=== PATIENT | male | born 1965 | race Caucasian/White ===

== ENCOUNTER 2017-07-22 16:55 | Inpatient (IN) | payer OTHER ==
[2017-07-22 17:22] VITALS: BMI 31.8
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
[2017-07-22] MEDS ORDERED: LOPERAMIDE HCL 2 MG CAPSULE PO PRN (17:45)
[2017-07-22] MEDS ORDERED: hydrOXYzine PAMOATE 50 MG CAPSULE (FP) PO PRN (17:45)
[2017-07-22] MEDS ORDERED: MAGNESIUM CITRATE 300 ML BOTTLE PO PRN (17:45)
[2017-07-22] MEDS ORDERED: chlordiazePOXIDE HCL 25 MG CAPSULE PO PRN (17:45)
[2017-07-22] MEDS ORDERED: MAG HYDROX/AL HYDROX/SIMETH 30 ML UNIT-DOSE CUP PO PRN (17:45)
[2017-07-22] MEDS ORDERED: IBUPROFEN 400 MG TABLET (FP) PO PRN (17:45)
[2017-07-22] MEDS ORDERED: ACETAMINOPHEN 325 MG TABLET (FP) PO PRN (17:45)
[2017-07-22] MEDS ORDERED: P-EPHED 60MG/TRIPROLIDI 2.5MG TABLET PO PRN (17:45)
[2017-07-22] MEDS ORDERED: NICOTINE POLACRILEX 4 MG GUM BC PRN (17:45)
[2017-07-22] MEDS ORDERED: MENTHOL/PHENOL 1 EACH UD MM PRN (17:45)
[2017-07-22] MEDS ORDERED: guaiFENesin/D-METHORPHAN HB 10 ML UNIT-DOSE CUPS PO PRN (17:45)
[2017-07-22] MEDS ORDERED: MAGNESIUM HYDROX 2400MG/30ML ORAL SUSPENSION 30 ML CUP PO PRN (17:45)
[2017-07-22] MEDS ORDERED: ALBUTEROL SO4 18 GM HFA INHALER IH PRN (17:54)
[2017-07-22] MEDS ORDERED: ALBUTEROL SO4 2.5/IPRATROPIUM 0.5 INH SOL 3 ML VIAL.NEB. NEB PRN (17:54)
[2017-07-22] MEDS ORDERED: BACLOFEN 10 MG TABLET (FP) PO SCH (18:00)
[2017-07-22] MEDS ORDERED: chlordiazePOXIDE HCL 25 MG CAPSULE PO ONE (18:30)
[2017-07-22] MEDS ORDERED: ALBUTEROL SO4 2.5/IPRATROPIUM 0.5 INH SOL 3 ML VIAL.NEB. NEB ONE (18:30)
[2017-07-22] MEDS: GABAPENTIN 400 MG CAPSULE (FP) PO SCH ×2 (18:52→22:08)
[2017-07-22] MEDS: IBUPROFEN 400 MG TABLET (FP) PO SCH (18:53)
[2017-07-22] MEDS: PANTOPRAZOLE 40 MG TABLET (FP) PO SCH (18:54)
[2017-07-22] MEDS: THIAMINE HCL 100 MG TABLET (FP) PO SCH (22:08)
[2017-07-22] MEDS: chlordiazePOXIDE HCL 25 MG CAPSULE PO SCH (22:09)
[2017-07-22 22:47] LABS: URINE APPEARANCE CLEAR; URINE BILIRUBIN NEGATIVE (NEGATIVE); URINE BLOOD 1+ (NEGATIVE); URINE COLOR YELLOW; URINE GLUCOSE (UA) NEGATIVE (NEGATIVE); URINE KETONE NEGATIVE (NEGATIVE); URINE NITRITE NEGATIVE (NEGATIVE); URINE PROTEIN NEGATIVE (NEGATIVE); URINE UROBILINOGEN NEGATIVE mg/dL (0.2-1.0)
[2017-07-22 22:58] LABS: URINE BACTERIA MANY /hpf (NONE SEEN); URINE RBC 3 /hpf (0-3); URINE WBC <1 /hpf (3-5)
[2017-07-23] MEDS: IBUPROFEN 400 MG TABLET (FP) PO SCH ×3 (03:30→17:55)
[2017-07-23] MEDS: chlordiazePOXIDE HCL 25 MG CAPSULE PO SCH ×4 (05:33→22:44)
[2017-07-23] MEDS: GABAPENTIN 400 MG CAPSULE (FP) PO SCH ×3 (05:33→22:43)
--- NOTE | 2017-07-23 07:32 | CONSULT ---
[facility] Psychiatric Consult - Data Date of interview: 07/23/17 Admission source: [facility] Identifying data: This is 51 years old spanisg speaking male with unclear past psychiatric history, with psychiatric hospitalization history, intoxicated with : Alocohol, Methadone, Cocaine and Nicotine. Reports MMTP 100MG POQD Substance Abuse History: - Smoking Cessation. Smoking history: Current every day smoker. Have you smoked in the past 12 months: Yes. Aproximately how many cigarettes per day: 20. Hx Chewing Tobacco Use: No. Initiated information on smoking cessation: Yes. 'Breaking Loose' booklet given: 07/22/17. - Substance & Tx. History. Hx Alcohol Use: Yes. Hx Substance Use: Yes. Substance Use Type : Alcohol, Cocaine. Hx Substance Use Treatment: Yes (last detox a year ago). - Substances Abused. Alcohol. Route: Oral. Frequency: Daily. Amount used : 1-2 pints whiskey. Age of first use: 9. Date of Last Use: 07/22/17. Cocaine. Route: Inhalation. Frequency: Daily. Amount used: $100. Age of first use: 14. Date of Last Use: 07/21/17 Medical History: Asthma, MMTP 100mg poqd Psychiatric History: Patient reports uncleat psychiatric admission on about 10 years ago, reports no suicidal history, reports taking prior to admission: Klonopin and Xanax Physical/Sexual Abuse/Trauma History: Denies Additional Comment: Observation. Detox Unit Care Protocol Mental Status Exam - Mental Status Exam Alert and Oriented to: Person Cognitive Function: Fair Patient Appearance: Unkempt Mood: Anxious Affect: Mood Congruent Patient Behavior: Cooperative Speech Pattern: Appropriate Voice Loudness: Normal Thought Process: Goal Oriented Thought Disorder: Being Controlled Hallucinations: Denies Suicidal Ideation: Denies Homicidal Ideation: Denies Insight/Judgement: Fair Sleep: Difficulty falling asleep Appetite: Weight gain Muscle strength/Tone: Normal Gait/Station: Normal Additional Comments: Observation. Detox Unit Care Protocol Psychiatric Findings - Problem List ([place] 1, 2,3) (1) Cocaine abuse Current Visit: Yes Status: Acute (2) Drug-induced mood disorder Current Visit: Yes Status: Suspected (3) Alcohol dependence with uncomplicated withdrawal Current Visit: Yes Status: Chronic (4) Methadone maintenance therapy patient Current Visit: Yes Status: Chronic (5) Nicotine dependence Current Visit: Yes Status: Chronic Qualifiers: Nicotine product type: cigarettes Substance use status: uncomplicated Qualified Code(s): F17.210 - Nicotine dependence, cigarettes, uncomplicated - Initial Treatment Plan Initial Treatment Plan: Observation. Detox Unit Care Protocol
[2017-07-23] MEDS: metFORMIN HCL 500 MG TABLET (FP) PO SCH (07:41)
[2017-07-23] MEDS ORDERED: METHADONE HCL 10 MG TABLET PO SCH (09:45)
[2017-07-23 10:03] LABS: MCH 30.9 pg (25.7-33.7); MCHC 33.4 g/dl (32.0-35.9); MEAN CELL VOLUME 92.6 fl (80-96); MEAN PLT VOLUME 8.3 fl (7.5-11.1); PLATELET COUNT 210 K/MM3 (134-434); RDW 14.1 % (11.9-15.9); WHITE BLOOD COUNT 4.5 K/mm3 (4.0-10.0)
--- NOTE | 2017-07-23 10:16 | EKG ---
Test Reason : Blood Pressure : / mmHG Vent. Rate : 065 BPM Atrial Rate : 065 BPM P-R Int : 150 ms QRS Dur : 080 ms QT Int : 434 ms P-R-T Axes : 062 060 056 degrees QTc Int : 451 ms NORMAL SINUS RHYTHM WITH SINUS ARRHYTHMIA NORMAL ECG NO PREVIOUS ECGS AVAILABLE Confirmed by PREETHI HENRY MD ([id number]) on 07/23/2017 10:16:23 AM Referred By: Confirmed By:PREETHI HENRY MD
[2017-07-23 10:26] LABS: ALBUMIN 3.4 g/dl (3.4-5.0); ALK PHOS 103 U/L (45-117); ANION GAP 4 (8-16); BILIRUBIN,TOTAL 1.2 mg/dL (0.2-1.0); CALCIUM 8.8 mg/dL (8.5-10.1); CO2 31 mmol/L (21-32); GLUCOSE,RANDOM 134 mg/dL (74-106); SGOT/AST 19 U/L (15-37); SGPT/ALT 20 U/L (12-78); TOT PROT 6.5 g/dl (6.4-8.2)
--- NOTE | 2017-07-23 10:33 | PN ---
S CIWA - CIWA Score Nausea/Vomitin Muscle Tremors: 3 Anxiety: 3 Agitation: 2 Paroxysmal Sweats: 1-Minimal Palms Moist Orientation: 0-Oriented Tacttile Disturbances: 1-Very Mild Itch/Numbness Auditory Disturbances: 1-Very Mild Visual Disturbances: 0-None Headache: 2-Mild CIWA-Ar Total Score: 16 BHS Progress Note (SOAP) Subjective: alert,irritable,anxious,interrupted sleep,tremor,pain in the body Objective: 07/23/17 10:30 Vital Signs Temperature 98.1 F 07/23/17 10:11 Pulse Rate 64 07/23/17 10:11 Respiratory Rate 18 07/23/17 10:11 Blood Pressure 146/89 07/23/17 10:11 O2 Sat by Pulse Oximetry (%) ekg nsr,with sinus arrhythmia nochest pain,no sob,no dizziness Laboratory Last Values WBC 4.5 K/mm3 (4.0-10.0) 07/23/17 07:00 RBC 4.43 M/mm3 (4.00-5.60) 07/23/17 07:00 Hgb 13.7 GM/dL (11.7-16.9) 07/23/17 07:00 Hct 41.0 % (35.4-49) 07/23/17 07:00 MCV 92.6 fl (80-96) 07/23/17 07:00 MCH 30.9 pg (25.7-33.7) 07/23/17 07:00 MCHC 33.4 g/dl (32.0-35.9) 07/23/17 07:00 RDW 14.1 % (11.9-15.9) 07/23/17 07:00 Plt Count 210 K/MM3 (134-434) 07/23/17 07:00 MPV 8.3 fl (7.5-11.1) 07/23/17 07:00 Sodium 138 mmol/L (136-145) 07/23/17 07:00 Potassium 4.1 mmol/L (3.5-5.1) 07/23/17 07:00 Chloride 103 mmol/L (98-107) 07/23/17 07:00 Carbon Dioxide 31 mmol/L (21-32) 07/23/17 07:00 Anion Gap 4 (8-16) L 07/23/17 07:00 BUN 13 mg/dL (7-18) 07/23/17 07:00 Creatinine 1.0 mg/dL (0.7-1.3) 07/23/17 07:00 Creat Clearance w eGFR > 60 (>60) 07/23/17 07:00 POC Glucometer 108 UNITS (80-120) 07/23/17 05:32 Random Glucose 134 mg/dL (74-106) H 07/23/17 07:00 Calcium 8.8 mg/dL (8.5-10.1) 07/23/17 07:00 Total Bilirubin 1.2 mg/dL (0.2-1.0) H 07/23/17 07:00 AST 19 U/L (15-37) 07/23/17 07:00 ALT 20 U/L (12-78) 07/23/17 07:00 Alkaline Phosphatase 103 U/L (45-117) 07/23/17 07:00 Total Protein 6.5 g/dl (6.4-8.2) 07/23/17 07:00 Albumin 3.4 g/dl (3.4-5.0) 07/23/17 07:00 Urine Color Yellow 07/22/17 22:00 Urine Appearance Clear 07/22/17 22:00 Urine pH 6.0 (5.0-8.0) 07/22/17 22:00 Ur Specific [place] 1.012 (1.001-1.035) 07/22/17 22:00 Urine Protein Negative (NEGATIVE) 07/22/17 22:00 Urine Glucose (UA) Negative (NEGATIVE) 07/22/17 22:00 Urine Ketones Negative (NEGATIVE) 07/22/17 22:00 Urine Blood 1+ (NEGATIVE) H 07/22/17 22:00 Urine Nitrite Negative (NEGATIVE) 07/22/17 22:00 Urine Bilirubin Negative (NEGATIVE) 07/22/17 22:00 Urine Urobilinogen Negative mg/dL (0.2-1.0) 07/22/17 22:00 Ur Epithelial Cells Rare /HPF (FEW) 07/22/17 22:00 Urine Bacteria Many /hpf (NONE SEEN) 07/22/17 22:00 Assessment: 07/23/17 10:32 withdrawal symptom Plan: continue detox,bgm monitoring,seizure precaution
[2017-07-23] MEDS ORDERED: METHADONE HCL 40 MG DISPERSABLE TABLET ONE (10:43)
[2017-07-23] MEDS ORDERED: METHADONE HCL 10 MG TABLET ONE (10:43)
[2017-07-23] MEDS: PRENATAL VITAMINS W/ FOLIC ACID TABLET (FP) PO SCH (10:52)
[2017-07-23] MEDS: PANTOPRAZOLE 40 MG TABLET (FP) PO SCH (10:52)
[2017-07-23] MEDS: levETIRAcetam 500 MG TABLET (FP) PO SCH (10:53)
[2017-07-23] MEDS: METHADONE 80 MG, METHADONE 20 MG PO SCH (10:53)
[2017-07-23] MEDS: NICOTINE 21 MG/24 HOURS TOPICAL PATCH TD SCH (10:54)
[2017-07-23 10:56] LABS: URINE LEUK ESTERASE Negative (NEGATIVE)
[2017-07-23 11:09] LABS: HIV 1 & 2 AB NEGATIVE; HIV 1 AGp24 NEGATIVE
[2017-07-23] MEDS ORDERED: FLU VACCINE QUAD 60 MCG/0.5 ML (MDV 17-18) IM ONE (12:00)
[2017-07-23] MEDS: THIAMINE HCL 100 MG TABLET (FP) PO SCH (22:44)
[2017-07-24] MEDS ORDERED: METHADONE HCL 10 MG TABLET ONE (04:32)
[2017-07-24] MEDS ORDERED: METHADONE HCL 40 MG DISPERSABLE TABLET ONE (04:32)
[2017-07-24] MEDS: IBUPROFEN 400 MG TABLET (FP) PO SCH ×3 (05:41→18:01)
[2017-07-24] MEDS: chlordiazePOXIDE HCL 25 MG CAPSULE PO SCH ×3 (05:41→17:50)
[2017-07-24] MEDS: METHADONE 80 MG, METHADONE 20 MG PO SCH (05:42)
[2017-07-24] MEDS: GABAPENTIN 400 MG CAPSULE (FP) PO SCH ×3 (07:56→22:29)
[2017-07-24] MEDS: metFORMIN HCL 500 MG TABLET (FP) PO SCH (07:56)
[2017-07-24] MEDS: levETIRAcetam 500 MG TABLET (FP) PO SCH (10:46)
[2017-07-24] MEDS: PANTOPRAZOLE 40 MG TABLET (FP) PO SCH (10:46)
[2017-07-24] MEDS: NICOTINE 21 MG/24 HOURS TOPICAL PATCH TD SCH (10:46)
[2017-07-24] MEDS: PRENATAL VITAMINS W/ FOLIC ACID TABLET (FP) PO SCH (10:46)
--- NOTE | 2017-07-24 12:19 | PN ---
S CIWA - CIWA Score Nausea/Vomitin-No Nausea/No Vomiting Muscle Tremors: 4-Moderate,w/Arms Extend Anxiety: 4-Mod. Anxious/Guarded Agitation: 4-Moderately Restless Paroxysmal Sweats: 3 Orientation: 0-Oriented Tacttile Disturbances: 0-None Auditory Disturbances: 0-None Visual Disturbances: 0-None Headache: 0-None Present CIWA-Ar Total Score: 15 BHS Progress Note (SOAP) Subjective: callous on the bottom of my feet and very uncomfortable sweats anxiety body aches Objective: 07/24/17 12:17 Vital Signs Temperature 99.0 F 07/24/17 09:48 Pulse Rate 67 07/24/17 09:48 Respiratory Rate 18 07/24/17 09:48 Blood Pressure 145/76 07/24/17 09:48 O2 Sat by Pulse Oximetry (%) Laboratory Tests 07/22/17 07/22/17 07/23/17 17:45 22:00 05:32 WBC RBC Hgb Hct MCV MCH MCHC RDW Plt Count MPV Sodium Potassium Chloride Carbon Dioxide Anion Gap BUN Creatinine Creat Clearance w eGFR POC Glucometer 134 108 Random Glucose Calcium Total Bilirubin AST ALT Alkaline Phosphatase Total Protein Albumin Urine Color Yellow Urine Appearance Clear Urine pH 6.0 Ur Specific [place] 1.012 Urine Protein Negative Urine Glucose (UA) Negative Urine Ketones Negative Urine Blood 1+ H Urine Nitrite Negative Urine Bilirubin Negative Urine Urobilinogen Negative Ur Leukocyte Esterase Negative Ur Epithelial Cells Rare Urine Bacteria Many RPR Titer HIV 1&2 Antibody Screen HIV P24 Antigen 07/23/17 07/23/17 07/23/17 07:00 07:00 07:00 WBC 4.5 RBC 4.43 Hgb 13.7 Hct 41.0 MCV 92.6 MCH 30.9 MCHC 33.4 RDW 14.1 Plt Count 210 MPV 8.3 Sodium 138 Potassium 4.1 Chloride 103 Carbon Dioxide 31 Anion Gap 4 L BUN 13 Creatinine 1.0 Creat Clearance w eGFR > 60 POC Glucometer Random Glucose 134 H Calcium 8.8 Total Bilirubin 1.2 H AST 19 ALT 20 Alkaline Phosphatase 103 Total Protein 6.5 Albumin 3.4 Urine Color Urine Appearance Urine pH Ur Specific [place] Urine Protein Urine Glucose (UA) Urine Ketones Urine Blood Urine Nitrite Urine Bilirubin Urine Urobilinogen Ur Leukocyte Esterase Ur Epithelial Cells Urine Bacteria RPR Titer Nonreactive HIV 1&2 Antibody Screen HIV P24 Antigen 07/23/17 07/24/17 08:20 05:40 WBC RBC Hgb Hct MCV MCH MCHC RDW Plt Count MPV Sodium Potassium Chloride Carbon Dioxide Anion Gap BUN Creatinine Creat Clearance w eGFR POC Glucometer 113 Random Glucose Calcium Total Bilirubin AST ALT Alkaline Phosphatase Total Protein Albumin Urine Color Urine Appearance Urine pH Ur Specific [place] Urine Protein Urine Glucose (UA) Urine Ketones Urine Blood Urine Nitrite Urine Bilirubin Urine Urobilinogen Ur Leukocyte Esterase Ur Epithelial Cells Urine Bacteria RPR Titer HIV 1&2 Antibody Screen Negative HIV P24 Antigen Negative aaox3 ambulating no acute distress Assessment: 07/24/17 12:18 withdrawal sx Plan: continue detox increase fluids pt may use his sneakers for some comfort. pt encouraged to see a ledger clerk after his detox and or rehab is complete. pt in agreement.
[2017-07-24] MEDS: THIAMINE HCL 100 MG TABLET (FP) PO SCH (22:29)
[2017-07-24] MEDS: chlordiazePOXIDE 5 MG CAPSULE PO SCH (22:29)
[2017-07-25] MEDS: IBUPROFEN 400 MG TABLET (FP) PO SCH ×3 (03:17→17:18)
[2017-07-25] MEDS ORDERED: METHADONE HCL 40 MG DISPERSABLE TABLET ONE (03:58)
[2017-07-25] MEDS ORDERED: METHADONE HCL 10 MG TABLET ONE (03:59)
[2017-07-25] MEDS: chlordiazePOXIDE 5 MG CAPSULE PO SCH ×3 (06:11→17:16)
[2017-07-25] MEDS: METHADONE 80 MG, METHADONE 20 MG PO SCH (06:11)
[2017-07-25] MEDS: GABAPENTIN 400 MG CAPSULE (FP) PO SCH ×3 (06:12→22:25)
[2017-07-25] MEDS: metFORMIN HCL 500 MG TABLET (FP) PO SCH (07:44)
--- NOTE | 2017-07-25 10:29 | PN ---
BHS Progress Note (SOAP) Subjective: alert,irritable,anxious,interrupted sleep Objective: 07/25/17 10:26 Vital Signs Temperature 97.7 F 07/25/17 06:15 Pulse Rate 50 L 07/25/17 06:15 Respiratory Rate 16 07/25/17 06:15 Blood Pressure 150/71 07/25/17 06:15 O2 Sat by Pulse Oximetry (%) Assessment: 07/25/17 10:27 withdrawal symptom 07/25/17 10:27 bgm is 120 Plan: withdrawal symptom,continue detox,discharge in am
[2017-07-25] MEDS: levETIRAcetam 500 MG TABLET (FP) PO SCH (10:40)
[2017-07-25] MEDS: PRENATAL VITAMINS W/ FOLIC ACID TABLET (FP) PO SCH (10:40)
[2017-07-25] MEDS: PANTOPRAZOLE 40 MG TABLET (FP) PO SCH (10:41)
[2017-07-25] MEDS: NICOTINE 21 MG/24 HOURS TOPICAL PATCH TD SCH (10:43)
[2017-07-25] MEDS ORDERED: LIDOCAINE 5% TOPICAL PATCH TP ONE (10:45)
[2017-07-25] MEDS: CYCLOBENZAPRINE HCL 10 MG TABLET (FP) PO PRN (18:55)
[2017-07-25] MEDS ORDERED: LIDOCAINE PATCH REMOVAL MC SCH (22:00)
[2017-07-25] MEDS: CARBAMIDE PEROXIDE 6.5% OTIC 15 ML BOTTLE AS SCH ×2 (22:00→22:46)
[2017-07-25] MEDS: chlordiazePOXIDE HCL 10 MG CAPSULE PO SCH (22:25)
[2017-07-25] MEDS: THIAMINE HCL 100 MG TABLET (FP) PO SCH (22:25)
[2017-07-26] MEDS: IBUPROFEN 400 MG TABLET (FP) PO SCH (02:20)
[2017-07-26] MEDS ORDERED: METHADONE HCL 10 MG TABLET ONE (04:36)
[2017-07-26] MEDS ORDERED: METHADONE HCL 40 MG DISPERSABLE TABLET ONE (04:36)
[2017-07-26] MEDS: METHADONE 80 MG, METHADONE 20 MG PO SCH (06:24)
[2017-07-26] MEDS: chlordiazePOXIDE HCL 10 MG CAPSULE PO SCH (06:28)
[2017-07-26] MEDS: GABAPENTIN 400 MG CAPSULE (FP) PO SCH (06:29)
[2017-07-26] MEDS: metFORMIN HCL 500 MG TABLET (FP) PO SCH (06:31)
[2017-07-26] MEDS: CYCLOBENZAPRINE HCL 10 MG TABLET (FP) PO PRN (07:26)
--- NOTE | 2017-07-26 09:04 | DS ---
[facility] Detox Discharge Summary Admission Date: 07/22/17 Discharge Date: 07/26/17 - History Present History: Alcohol Dependence, MMTP Pertinent Past History: asthma type 2 dm nicotine dependence drug induced mood disorder - Physical Exam Results Vital Signs: Vital Signs Temperature 97.9 F 07/26/17 06:08 Pulse Rate 50 L 07/26/17 06:08 Respiratory Rate 16 07/26/17 06:08 Blood Pressure 136/72 07/26/17 06:08 O2 Sat by Pulse Oximetry (%) Pertinent Admission Physical Exam Findings: follow up with after care program as arrangement - Treatment Hospital Course: Detox Protocol Followed, Detoxed Safely, Responded well, Discharged Condition Good Patient has Accepted a Rehab Referral to: declined - Medication Discharge Medications: Ambulatory Orders NK [No Known Home Medication] 07/22/17 - Diagnosis (1) Alcohol dependence with uncomplicated withdrawal Current Visit: Yes Status: Chronic (2) Asthma Current Visit: Yes Status: Acute Qualifiers: Asthma severity: mild Asthma complication type: uncomplicated (3) Diabetes Current Visit: Yes Status: Chronic Qualifiers: Diabetes mellitus type: type 2 Diabetes mellitus complication status: without complication (4) Methadone maintenance therapy patient Current Visit: Yes Status: Chronic (5) Nicotine dependence Current Visit: Yes Status: Chronic Qualifiers: Nicotine product type: cigarettes Substance use status: uncomplicated Qualified Code(s): F17.210 - Nicotine dependence, cigarettes, uncomplicated (6) Drug-induced mood disorder Current Visit: Yes Status: Suspected - AMA Did Patient Leave Against Medical Advice: No
[2017-07-26] MEDS ORDERED: LIDOCAINE 5% TOPICAL PATCH TP SCH (10:00)
[2017-07-26 11:22] VITALS: BP 126/93; PULSE 92; TEMP 97.7
== END 2017-07-26 11:08 | disposition home or self-care (01) | DRG 897 ==
LOC: YASAS 16:55 → Y6N 18:06
PROVIDERS: ADMIT Internal Medicine; ATTEND Internal Medicine
PROC: HZ2ZZZZ Detoxification Services for Substance Abuse Treatment (ICD-10-PCS; principal; 2017-07-22)
DX: F19.230 Other psychoactive substance dependence with withdrawal, uncomplicated (principal); F11.20 Opioid dependence, uncomplicated; F10.230 Alcohol dependence with withdrawal, uncomplicated; F17.210 Nicotine dependence, cigarettes, uncomplicated; F19.24 Other psychoactive substance dependence with psychoactive substance-induced mood disorder; E11.9 Type 2 diabetes mellitus without complications; Z79.84 Long term (current) use of oral hypoglycemic drugs; J45.909 Unspecified asthma, uncomplicated
CPT/HCPCS: 36415; 80053; 81003; 81015; 85027; 86593; 87389; 90688; 93005; 93010; G0008